=== PATIENT | female | born 1945 | race Caucasian/White ===

== ENCOUNTER 2023-04-13 23:07 | Emergency (ER) | payer OTHER ==
[2023-04-14] MEDS ORDERED: Lidocaine 5% 700 MG Patch TOP ONE (00:46)
== END 2023-04-14 01:14 | disposition home or self-care (01) ==
LOC: DL.ED 23:07
DX: S83.92XA Sprain of unspecified site of left knee, initial encounter (principal); X50.1XXA Overexertion from prolonged static or awkward postures, initial encounter; Y92.512 Supermarket, store or market as the place of occurrence of the external cause; Y99.0 Civilian activity done for income or pay
CPT/HCPCS: 73564-LT; 99282; 99283; A9270-GY